=== PATIENT | male | born 1970 | race Caucasian/White ===

== ENCOUNTER → 2019-12-03 14:56 | Outpatient (CLI) | payer BC | END | disposition home or self-care (01) | LOC: D.MRI 14:56 | PROVIDERS: ATTEND Nurse Practitioner Family | DX: M67.431 Ganglion, right wrist (principal) ==

== ENCOUNTER 2020-01-03 07:57 | Day surgery (SDC) | payer BC ==
[~2020-01-03] VITALS: Ht 177.8 cm; Wt 87.1 kg
[~2020-01-03 07:57] MED LIST: CRESTOR10 MG PO; NEXIUM20 MG PO; TAZTIA XT360 MG PO
[2020-01-03 08:36] LABS: CALC OSMOLALITY 280 mosm/kg (275-300); CALCIUM 8.5 mg/dL (8.5-10.1); CARBON DIOXIDE 28.1 mmol/L (21.0-32.0); CHLORIDE - SERUM 106 mmol/L (98-107); CREATININE - SERUM 1.1 mg/dL (0.6-1.3); GLUCOSE 117 mg/dL (74-106); POTASSIUM - SERUM 3.8 mmol/L (3.5-5.1); SODIUM 141 mmol/L (136-145); UREA NITROGEN 11 mg/dL (7-18); eGFR NON AFRICAN AMERICAN 75 mL/min (90-120)
[2020-01-03 08:37] LABS: HEMATOCRIT 42.4 % (42.0-54.0); HEMOGLOBIN 14.3 g/dL (13.5-17.5); MCH 30.4 pg (26.0-34.0); MCHC 33.7 g/dL (31.0-37.0); MCV 90.2 fL (80.0-100.0); MEAN PLATELET VOLUME 9.5 fL (7.4-10.4); RBC 4.7 10x6/uL (4.20-6.10); RDW 12.6 % (11.5-14.5); WBC 4.5 10x3/uL (4.8-10.8)
[2020-01-03 09:08] VITALS: BP 121/76; Ht 177.8 cm; Wt 87.1 kg
--- NOTE | 2020-01-03 14:36 | NUR ---
1415 IV REMOVED AND INSTRUCTIONS GIVEN TO PT
--- NOTE | 2020-01-04 06:57 | OP ---
PATIENT NAME: BRANDON KOO MEDICAL RECORD: [id number] :66 LOCATION:[facility] ADMISSION DATE: SURGEON: JUNAID HALL DO DATE OF OPERATION: 01/03/2020 PROCEDURE PERFORMED: Right wrist extensor tendon incision and debridement. PREOPERATIVE DIAGNOSIS: Right wrist fourth dorsal compartment tenosynovitis. POSTOPERATIVE DIAGNOSIS: Right wrist fourth dorsal compartment tenosynovitis. INDICATIONS: Mr. Koo is a 49-year-old male who has had this left wrist mass on the dorsal aspect of the wrist for quite some time, it has been bothering him this with activities of daily living. He got an MRI showing extensive tenosynovitis in the fourth dorsal compartment as well as Kienbock's disease and a volar wrist ganglion. The Kienbock's disease and volar wrist ganglion did not bother him as well as the ulnar negative variance, this did not bother him and only the fourth dorsal compartment tenosynovitis as it is quite large, he wanted something done surgically. I informed him of the risks including infection, bleeding, damage to the tendons, ruptures of the tendons, continued pain, and recurrence of this tenosynovitis, and he signed the consent. SURGEON: Junaid Hall DO DESCRIPTION OF PROCEDURE: The patient was taken to the operative suite, laid in supine position, given general anesthetic. Two grams Ancef and LMA was placed. The right upper extremity was then prepped and draped in sterile fashion. Timeout was performed. Everyone was in agreement with the correct site, side, patient, and procedure. I then exsanguinated the right upper extremity with an Esmarch, tourniquet was inflated to 250 mmHg, it was up for 16 minutes. I then made an incision over the fourth dorsal compartment and careful dissection made down to and there is quite a large synovitis that was developed over the fourth dorsal compartment and in fact went under the extensor retinaculum. I released it, and made a Z-type incision over it and to lengthen it and secured it over radially to give the tendon the more room. I debrided thoroughly the tendons. There were some tendons that were quite frayed and once I debrided it and Z lengthened the flexor retinaculum, the tourniquet was let down, any bleeding was coagulated with a pickup and Bovie and a bipolar. I then closed the skin with 4-0 nylon in a running fashion. He was then dressed with Adaptic, 4 x 4s, cast padding and Luis Felipe wrap, awakened and taken to recovery room in stable condition. BLOOD LOSS: Minimal. COMPLICATIONS: None. TRANSINT:[id number] Voice Confirmation ID: [id number] DOCUMENT ID: [id number] OPERATIVE REPORT [id number] BRANDON KOO MICHAEL D, DO at 0657 CC: [id number] DICTATION DATE: 01/03/20 1733 MATHEMATICS PROFESSOR: 01/04/20 0252 [facility] 01/03/20 [id number] [place] [address]
== END 2020-01-03 14:30 | disposition home or self-care (01) ==
LOC: D.OPS 07:57 → D.PAN 10:45 → D.OPS 14:30
PROVIDERS: Anesthesiology; ATTEND Orthopaedic Surgery
DX: M65.831 Other synovitis and tenosynovitis, right forearm (principal); M79.641 Pain in right hand

== ENCOUNTER → 2020-01-22 18:05 | Outpatient (CLI) | payer BC ==
[2020-01-03 09:08] VITALS: BMI 27.6
[2020-01-22 21:55] LABS: ERYTHROCYTE SEDIMENTATION RATE 20 mm/hr (0-20)
[2020-01-24 10:13] LABS: ANA REFLEX - DIRECT Negative (Negative)
== END | disposition home or self-care (01) ==
LOC: D.LABREF 18:05
PROVIDERS: ATTEND Orthopaedic Surgery
DX: M25.531 Pain in right wrist (principal)